=== PATIENT | female | born 1995 | race Caucasian/White ===

== ENCOUNTER 2016-08-06 10:25 | Emergency (ER) ==
[2016-08-06 11:03] LABS: MANUAL DIFF NEEDED? NO
[2016-08-06 11:05] LABS: BASO% 0.1 % (0.0-0.8); EOS% 0.8 % (0.0-10.0); HEMATOCRIT 36.3 % (37.0-47.0); HEMOGLOBIN 12.7 g/dL (12.0-16.0); IMM GRAN# 0.05 X1000 (0.0-0.04); IMM GRAN% 0.4 % (0.0-0.5); LYMPH# 1.75 X1000 (1.2-3.4); LYMPH% 14.3 % (20.5-51.1); MCH 31.4 PG (27-31); MCV 89.6 FL (81-99); MONO# 0.53 X1000 (0.11-0.59); MONO% 4.3 % (1.7-9.3); MPV 10.9 FL (7.4-10.4); NEUT% 80.1 % (42.2-75.2); PLT 232 X1000 (130-400); RBC 4.05 XMIL (4.2-5.4)
[2016-08-06 11:49] LABS: AGAP 11; ALBUMIN 3.8 g/dL (3.5-5.0); ALKALINE PHOSPHATASE 42 U/L (32-104); BUN 11 mg/dL (8-22); CALCIUM 8.9 mg/dL (8.8-10.2); CHLORIDE 102 mmol/L (98-107); COSMO 270; GOT 15 U/L (10-30); GPT 15 U/L (10-36); LIPASE 28 U/L (13-60); POTASSIUM 3.8 mmol/L (3.5-5.1); SODIUM 135 mmol/L (136-145); TCO2 23 mmol/L (25-35); TOTAL BILIRUBIN < 0.15 mg/dL (0.20-1.00); TOTAL PROTEIN 6.3 g/dL (6.3-8.3)
[2016-08-06 12:21] LABS: URINE SOURCE CLEAN CATCH
[2016-08-06 12:25] LABS: BILIRUBIN URINE NEGATIVE (NEGATIVE); BLOOD URINE NEGATIVE (NEGATIVE); CLARITY CLEAR (CLEAR); COLOR YELLOW; GLUCOSE URINE NEGATIVE (NEGATIVE); LEUKOCYTES URINE TRACE (NEGATIVE); NITRITE URINE NEGATIVE (NEGATIVE); PH URINE 6.5; PROTEIN URINE 1+(30 mg/dL) mg/dL (NEGATIVE); SP GRAVITY URINE 1.015; UROBILINOGEN URINE NORMAL
[2016-08-06 12:41] LABS: URINE CULTURE PL NEEDED? YES; URINE EPITHELIAL CELLS >10 /HPF (<10); URINE WBC <10 /HPF (<10)
--- NOTE | 2016-08-06 13:05 | PROVIDER DOCUMENTATION ---
HPI-Female /OB/Breast <Otf Good - Last Filed: 08/06/16 13:04> - General Source: reports: patient, family - History of Present Illness-Female /OB Does patient report she is ?: Yes Location of complaint: reports: RLQ, LLQ Radiation: reports: none Quality of Pain: reports: aching, sharp Severity in ED: reports: mild Onset/Duration: reports: just prior to arrival Timing: reports: gone now Context/Activities at Onset: reports: light activity Vaginal Symptoms: reports: no symptoms Vaginal Bleeding Amount: None Urinary Symptoms: reports: no symptoms Related Symptoms: reports: no symptoms Leakage of Fluid: none Sexual intercourse history: reports: Single Partner Contraception: reports: none Modifying Factors: improves with: nothing Associated Symptoms: reports: denies symptoms Similar Symptoms Previously?: Yes Recently seen or treated by another doctor?: No - LMP/ History : 3 Para: 2 : 0 <Hermila Pham - Last Filed: 08/06/16 13:11> - General Chief Complaint: Abdominal Pain Stated Complaint: 16 WEEKS PREG/ABD PX Time Seen by Provider: 08/06/16 10:47 Allergies/Adverse Reactions: Patient Allergies Allergy/AdvReac Type Severity Reaction Status Date / Time No Known Allergies Allergy Verified 07/29/15 16:13 Home Medications: Home Medication List Medication Instructions Recorded Confirmed Last Taken Type Amoxicillin/Pot Clavulanate 875 mg PO Q12HR #14 tablet 07/29/15 Unknown Rx [Augmentin] Ibuprofen [Motrin] 800 mg PO Q8H PRN PRN #20 tablet 07/29/15 Unknown Rx Loratadine [Claritin] 10 mg PO DAILY #20 capsule 07/29/15 Unknown Rx Pnv with Ca,No.72/Iron/FA [Pnv 1 each PO DAILY #30 tablet 08/06/16 Unknown Rx Plus Multivit Tab] Review of Systems - Adult - REVIEW OF SYSTEMS - ADULT Constitutional: denies: chills, fever Eyes: denies: blurred vision, double vision Ears, Nose, Mouth & Throat: denies: ear pain, nose pain, throat pain Cardiovascular: denies: chest pain, heart murmur, irregular heart rate Respiratory: denies: cough, shortness of breath, wheezing Gastrointestinal: reports: abdominal pain. denies: diarrhea, nausea, vomiting Genitourinary: denies: dysuria, hematuria Musculoskeletal: denies: bone pain, joint pain, neck pain Integumentary: denies: hives, itching Neurological: denies: dizziness/vertigo, headache/migraines Psychiatric: reports: no symptoms reported Endocrine: reports: no symptoms reported Hematologic/Lymphatic: reports: no symptoms reported Allergic/Immunologic: reports: no symptoms reported All Other Systems: Reviewed and Negative <Hermila Pham - Last Filed: 08/06/16 13:11> Past History - Adult - PAST MEDICAL HISTORY-ADULT Major Childhood Illnesses: reports: denies history Cardiovascular: reports: denies history Respiratory: reports: denies history Gastrointestinal: reports: denies history Obstetrical/Gynecological: reports: denies history Genitourinary: reports: denies history Musculoskeletal: reports: denies history Neurological: reports: denies history Endocrine/Immune: reports: denies history Other Conditions: reports: denies history - FAMILY HISTORY Family History: reviewed, not pertinent <Otf Good - Last Filed: 08/06/16 13:04> - PAST MEDICAL HISTORY-ADULT Review of Records: reports: Nursing Assessment Review, Medications Reviewed, Social history reviewed & non-contributory. Major Childhood Illnesses: reports: denies history Cardiovascular: reports: denies history Respiratory: reports: denies history Gastrointestinal: reports: denies history Obstetrical/Gynecological: reports: denies history Genitourinary: reports: denies history Musculoskeletal: reports: denies history Neurological: reports: denies history Endocrine/Immune: reports: denies history Other Conditions: reports: denies history - PRIOR SURGERIES/PROCEDURES Surgical/Procedure History: reports: reviewed, not pertinent - IMMUNIZATION STATUS Childhood Immunizations: See Nurse Assessment Flu Vaccine: See Nurse Assessment - FAMILY HISTORY Family History: reviewed, not pertinent - SOCIAL HISTORY Smoking: quit less than 1 year, cigarettes Substance Use: denies Living Situation: family <Hermila Pham - Last Filed: 08/06/16 13:11> Physical Exam-General - PHYSICAL EXAM-ADULT Initial Vital Signs Reviewed: Yes - CONSTITUTIONAL General Appearance: appears well, alert, no apparent distress - EYES Eyes: PERRL/EOMI, pink conjunctivae, fundi clear, no AV nicking - HEAD, EARS, NOSE, MOUTH & THROAT HENMT: normocephalic/atraumatic, moist mucous membranes, normal ENT inspection, TMs normal, pharynx normal - NECK Neck: non-tender, full range of motion, supple, normal inspection - RESPIRATORY Respiratory: chest non-tender, lungs clear, normal breath sounds, no pleuratic chest pain, no respiratory distress, no accessory muscle use - CARDIOVASCULAR Cardiovascular: normal peripheral pulses, regular rate, rhythm, no edema, no gallop, no JVD, no murmur - GASTROINTESTINAL (ABDOMEN) Abdominal Exam: normal bowel sounds, non tender, soft, no organomegaly, no pulsatile mass - LYMPHATIC Lymphatic: no adenopathy - MUSCULOSKELETAL Back Exam: normal inspection, no CVA tenderness, no vertebral tenderness Extremity: normal range of motion, non-tender, normal gait, normal inspection, no pedal edema, no calf tenderness, normal capillary refill - SKIN Integumentary: normal color, normal turgor, warm/dry - NEUROLOGIC Neurologic: tap grinder II-XII nml as tested, grossly normal, no motor/sensory deficits - PSYCHIATRIC Psych/Mental Status: normal mood/affect, normal thought content, normal thought process, oriented x 3 <Hermila Pham - Last Filed: 08/06/16 13:11> Progress <Otf Good - Last Filed: 08/06/16 13:04> - ULTRASOUND (By Radiology) 1 US Study: other (OBS complete > 14 wks) Impression: Abnormal US Results: IUP at 18w6d and FHR =150 <Hermila Pham - Last Filed: 08/06/16 13:11> - PLAN OF CARE/RESULTS Progress/Plan/Lab Results: Laboratory Tests 08/06/16 08/06/16 08/06/16 11:01 11:01 11:01 WBC 12.27 H RBC 4.05 L Hgb 12.7 Hct 36.3 L MCV 89.6 MCH 31.4 H MCHC 35.0 RDW Std Deviation 12.7 Plt Count 232 MPV 10.9 H Immature Gran % (Auto) 0.4 Neut % (Auto) 80.1 H Lymph % (Auto) 14.3 L [place] % (Auto) 4.3 Eos % (Auto) 0.8 Baso % (Auto) 0.1 Immature Gran # (Auto) 0.05 H Neut # (Auto) 9.83 H Lymph # (Auto) 1.75 [place] # (Auto) 0.53 Eos # (Auto) 0.10 Baso # (Auto) 0.01 Sodium 135 L Potassium 3.8 Chloride 102 Carbon Dioxide 23 L Anion Gap 11 BUN 11 Creatinine 0.4 L Estimated GFR/1.73 m2 > 60 BUN/Creatinine Ratio 28 Glucose 104 Calculated Osmolality 270 Calcium 8.9 Total Bilirubin < 0.15 L AST 15 ALT 15 Alkaline Phosphatase 42 Total Protein 6.3 Albumin 3.8 Globulin 3.0 Albumin/Globulin Ratio 2.0 Lipase 28 Ser , Semi-Qnt 8503.0 Urine Source Urine Color Urine Clarity Urine pH Ur Specific [place] Urine Protein Urine Ketones Urine Blood Urine Nitrite Urine Bilirubin Urine Urobilinogen Urine Microscopic RBC Urine WBC Urine Microscopic WBC Ur Epithelial Cells Urine Bacteria Urine Glucose ABO/Rh RhIG Candidate? 08/06/16 08/06/16 11:01 11:15 WBC RBC Hgb Hct MCV MCH MCHC RDW Std Deviation Plt Count MPV Immature Gran % (Auto) Neut % (Auto) Lymph % (Auto) [place] % (Auto) Eos % (Auto) Baso % (Auto) Immature Gran # (Auto) Neut # (Auto) Lymph # (Auto) [place] # (Auto) Eos # (Auto) Baso # (Auto) Sodium Potassium Chloride Carbon Dioxide Anion Gap BUN Creatinine Estimated GFR/1.73 m2 BUN/Creatinine Ratio Glucose Calculated Osmolality Calcium Total Bilirubin AST ALT Alkaline Phosphatase Total Protein Albumin Globulin Albumin/Globulin Ratio Lipase Ser , Semi-Qnt Urine Source CLEAN CATCH Urine Color YELLOW Urine Clarity CLEAR Urine pH 6.5 Ur Specific [place] 1.015 Urine Protein 1+(30 mg/dL) A Urine Ketones NEGATIVE Urine Blood NEGATIVE Urine Nitrite NEGATIVE Urine Bilirubin NEGATIVE Urine Urobilinogen NORMAL Urine Microscopic RBC Not Reportable Urine WBC TRACE A Urine Microscopic WBC <10 Ur Epithelial Cells >10 A Urine Bacteria 1+ Urine Glucose NEGATIVE ABO/Rh A POSITIVE RhIG Candidate? NO Orders Category Date Time Status Saline Loc NOW Care 08/06/16 10:47 Active US OBS COMPLETE > 14 WKS [US] Stat Exams 08/06/16 10:48 Taken CBC WITH DIFF [HEME] Stat Lab 08/06/16 11:01 Completed COMPREHENSIVE METABOLIC PANEL [CHEM] Stat Lab 08/06/16 11:01 Completed LIPASE [CHEM] Stat Lab 08/06/16 11:01 Completed QUANT TEST Stat Lab 08/06/16 11:01 Completed RHOGAM WORKUP [BBK] Stat Lab 08/06/16 11:[address] W/POSS RFLX CULT [URINALYSIS] Stat Lab 08/06/16 11:15 Completed URINE CULTURE [RM] Routine Lab 08/06/16 12:41 Ordered Vital Signs - 24 hr 08/06/16 10:33 Temperature 98.8 F Pulse Rate 92 H Respiratory 20 Rate Blood Pressure 113/060 O2 Sat by Pulse 98 Oximetry (Hermila Pham) Departure - Departure Time of Disposition Order: 13:04 Certified Medical Emergency: Emergent <Otf Good - Last Filed: 08/06/16 13:04> - Departure Time of Disposition Order: 13:10 Certified Medical Emergency: Emergent <Hermila Pham - Last Filed: 08/06/16 13:11> - Departure DIAGNOSIS: Round ligament pain Qualifiers: Weeks of gestation: 18 weeks Qualified Code(s): Z3A.18 - 18 weeks gestation of Disposition: HOME 01 Condition: Good Additional Instructions: Take medication as prescribed. Take tylenol for pain. Follow up with an VIDEO SOFTWARE ENGINEER. ED Follow Up Instructions: You have been treated by a care provider in the Emergency Department. These instructions are being provided to you so you can have an understanding of how to care for yourself upon discharge. Upon discharge from the Emergency Department, you are responsible for making arrangements for follow-up care by a physician of your choice. Take all prescribed medications as directed. Return to the Emergency Department immediately for any new or worsening symptoms. You may call the Physician Referral phone number at [phone] to obtain a list of Physicians who are taking new patients. Prescriptions: Pnv with Ca,No.72/Iron/FA [Pnv Plus Multivit Tab] 1 each PO DAILY #30 tablet Referrals: None,PCP [Primary Care Provider] - Otf Bolton MD [STAFF PHYSICIAN] - Forms: Return to School/Parent Work Instructions: Care Attestation - Physician/ RADHIKA Attestation Patient care was provided by Advanced Practice Provider:: Yes Advanced Practice Provider:: Otf Good Advanced Practice Provider documentation review:: The Mid-level provider documentation, treatment plan and medical decision making was reviewed by the physician who agrees with all treatment and medical decision making by the MLP. <Otf Good - Last Filed: 08/06/16 13:04> - Scribe Verification/Attestation Scribe:: Hermila Pham Acting as Scribe for:: Oft Good Scribe documention review:: This chart was documented by a scribe and accurately reflects the service the provider performed and the decisions made by the provider. <Hermila Pham - Last Filed: 08/06/16 13:11> Physician Attestation
[2016-08-06 13:52] VITALS: BP 110/073
--- NOTE | 2016-08-06 14:26 | Diag Imaging Result Document ---
PROCEDURE NAME: US OBS COMPLETE > 14 WKS - 08/06/2016 OB ULTRASOUND: FINDINGS: There is an intrauterine with estimated gestational age of 18 weeks 6 days, + /- 10 days. This corresponds to an estimated date of delivery of 01/01/17. The placenta is posterior. The fetus is in breech presentation. The heart rate is 150 beats per minute. No focal abnormality identified. IMPRESSION: Intrauterine with an estimated gestational age of 18 weeks and 6 days with heart rate of 150 beats per minute. A preliminary report was given at 1 p.m.
== END 2016-08-06 13:20 | disposition home or self-care (01) ==
LOC: P.ED 10:25
DX: O26.892 Other specified pregnancy related conditions, second trimester (principal); R10.2 Pelvic and perineal pain; R10.31 Right lower quadrant pain; R10.32 Left lower quadrant pain; Z3A.18 18 weeks gestation of pregnancy; Z87.891 Personal history of nicotine dependence
CPT/HCPCS: 76805; 80053; 81001; 83690; 84702; 85025; 86900; 86901; 87088